=== PATIENT | female | born 1960 | race African-American/Black ===

== ENCOUNTER 2017-02-07 05:22 | Emergency (ER) | payer SELFPAY ==
[~2017-02-07] VITALS: Ht 162.6 cm; Wt 63.5 kg
[2017-02-07] MEDS ORDERED: LORAZEPAM 2MG/ML CPJ IV PRN (06:00)
[2017-02-07] MEDS ORDERED: HALOPERIDOL LACTATE 5MG/ML VIAL IM PRN (06:00)
[2017-02-07] MEDS ORDERED: ZIPRASIDONE HCL 20MG CAPSULE PO ONE (06:30)
[2017-02-07 06:45] VITALS: BP 112/76
[2017-02-07 06:45] LABS: BASOPHILS % 1.4 % (0.0-2.0); HEMATOCRIT. 41.1 % (36.0-48.0); HEMOGLOBIN. 13.7 g/dL (12.0-16.0); LYMPHOCYTES % 43.8 % (20.0-50.0); MEAN CORPUSCULAR VOLUME 86.8 fL (81.0-99.0); MEAN PLATELET VOLUME 8.1 fl (7.4-10.4); MONOCYTES % 6.5 % (2.0-8.0); NEUTROPHILS % 47.3 % (40.0-76.0); PLATELET 331 x1000/uL (130-400); RED BLOOD CELL COUNT 4.74 mill/uL (4.2-5.4); RED CELL DISTRIBUTION WIDTH 14.1 % (11.6-14.6)
[2017-02-07 06:55] LABS: CARBON DIOXIDE 27 mEq/L (21-32); CHLORIDE 109 mEq/L (98-107); ETHANOL BLOOD 280 mg/dL
== END 2017-02-07 07:15 | disposition home or self-care (01) ==
LOC: ER 05:26
DX: F10.129 Alcohol abuse with intoxication, unspecified (principal); I10 Essential (primary) hypertension; Y90.8 Blood alcohol level of 240 mg/100 ml or more
CPT/HCPCS: 36415; 80053; 80307; 80329; 85025; 93005; 99285; G0482; Z7610; J1630; J2060